=== PATIENT | female | born 1990 | race Caucasian/White ===

== ENCOUNTER 2017-01-29 13:07 | Emergency (ER) | payer OTHER ==
[~2017-01-29] VITALS: Ht 154.9 cm; Wt 62.6 kg
[~2017-01-29 13:07] MED LIST: ACETAMINOPHEN; BACTRIM DS TABL1 TA1 PO; CIPRO PO; CITRATE OF MAG296 M1; COLACE; DICLOXAXILLIN250 MG PO; ELIMITE60 GM TOP; IBUPROFEN; IBUPROFEN800 MG PO; MACROBID100 M1 PO; NO MEDICATIONS; NORCO1 TAB 10/3 PO; PYRIDIUM PO; ULTRAM PO; VOLTAREN75 MG PO; ZITHROMAX PO; ZOFRAN ODT4 MG PO
== END 2017-01-29 14:03 | disposition home or self-care (01) ==
LOC: SED 13:07
DX: B34.9 Viral infection, unspecified (principal)
CPT/HCPCS: 99283